=== PATIENT | female | born 1970 | race Hispanic/Latino ===

== ENCOUNTER 2018-10-23 05:26 | Inpatient (IN) | payer MEDICAID ==
[2018-10-23 05:32] VITALS: O2SAT 99
--- NOTE | 2018-10-23 05:50 | ED PDOC ---
Psych Transfer Clearance - Clearance Statement Clearance Statement: Reviewed vital signs, lab results and transfer papers. Patient clinically stable for psychiatric admission.
[2018-10-23] MEDS ORDERED: Magnesium Hydroxide Susp 30 ml UD PO PRN (06:02)
[2018-10-23] MEDS ORDERED: DiphenhydrAMINE 50 mg/ml Inj IM PRN (06:02)
[2018-10-23] MEDS ORDERED: Alum-Mag Hydrox-Simethicone Susp (30 mL) PO PRN (06:02)
--- NOTE | 2018-10-23 06:20 | PCM.BM ---
Treatment Plan Problems - Problems identified on initial assessmt Suicidal Ideation Date Initiated: 10/23/18 Time Initiated: 06:17 Assessment reference: NA Status: Active Hopelessness/Helplessness Date Initiated: 10/23/18 Time Initiated: 06:18 Assessment reference: NA Status: Active Altered Sleep Patterns Date Initiated: 10/23/18 Time Initiated: 06:21 Assessment reference: NA Treatment assets and liabiliti Patient Assests: cooperative, ADL independent, negotiates basic needs, good past tx response, cognitively intact Patient Liabilities: substance abuse, medical problems - Milieu Protocol Maintain good personal hygiene: daily Encourage regular showers, other Remind patient to perform daily oral care (prn), other Assist patient to perform ADL's (prn) Conduct patient checks and document Observation sheet: Q15 minutes Maintain personal safety: every shift Educate patient to report safety concerns to staff, every shift Monitor environment for contraband/sharps Medication safety: Monitor for expected outcome, potential side effects: every shift, Assess barriers to learning: every shift, Assess readiness for medication education: every shift
--- NOTE | 2018-10-23 08:30 | CARD ---
APPROVED REPORT Date of service: 10/23/2018 EKG Measurement Heart [id number] <Conclusion> Normal sinus rhythm Normal ECG
[2018-10-23 09:39] VITALS: BP 112/79; PULSE 93; RESP 18; TEMP 97.7
--- NOTE | 2018-10-23 14:45 | CP.PCM.CON ---
History of Present Illness - History of Present Illness History of Present Illness: 48 yo female with history of alcoholism admitted to psyche unit because of depression. Review of Systems - Review of Systems All systems: reviewed and no additional remarkable complaints except (aside from those mentioned above, 12 point system review were negative by me) Past Patient History - Tetanus Immunizations Tetanus Immunization: Unknown - Past Medical History & Family History Past Medical History?: No - CARDIAC Hx Cardiac Disorders: No - PULMONARY Hx Respiratory Disorders: No - NEUROLOGICAL Hx Neurological Disorder: No - HEENT Hx HEENT Problems: No - RENAL Hx Chronic Kidney Disease: No - HEMATOLOGICAL/ONCOLOGICAL Hx Blood Disorders: No - INTEGUMENTARY Hx Dermatological Problems: No - MUSCULOSKELETAL/RHEUMATOLOGICAL Hx Musculoskeletal Disorders: No - GASTROINTESTINAL Hx Gastrointestinal Disorders: No - GENITOURINARY/GYNECOLOGICAL Hx Genitourinary Disorders: No - PSYCHIATRIC Hx Substance Use: No - SURGICAL HISTORY Hx Surgeries: Yes Hx Cholecystectomy: Yes (2002) Hx Gastric Bypass Surgery: Yes (2001) Hx Hysterectomy: Yes (2001) Hx Thyroidectomy: Yes (2015) Other/Comment: left knee surgery, 1993 - ANESTHESIA Hx Anesthesia: Yes Hx Anesthesia Reactions: No Meds Allergies/Adverse Reactions: Allergies Allergy/AdvReac Type Severity Reaction Status Date / Time No Known Allergies Allergy Verified 10/23/18 05:32 - Medications Medications: Current Medications Acetaminophen (Tylenol 325mg Tab) 650 mg PO Q4 PRN PRN Reason: pain 4-7 Last Admin: 10/23/18 12:47 Dose: 650 mg Al Hydrox/Mg Hydrox/Simethicone (Maalox Plus 30 Ml) 30 ml PO Q4 PRN PRN Reason: Dyspepsia Diphenhydramine HCl (Benadryl) 50 mg IM Q6 PRN PRN Reason: Extrapyramidal S/S Unable PO Diphenhydramine HCl (Benadryl) 50 mg PO Q6 PRN PRN Reason: Extrapyramidal Symptoms Diphenhydramine HCl (Benadryl) 50 mg PO HS PRN PRN Reason: Sleep Haloperidol (Haldol) 5 mg PO Q4 PRN PRN Reason: Agitation Haloperidol Lactate (Haldol) 5 mg IM Q4 PRN PRN Reason: Agitation, Unable to Take PO Lorazepam (Ativan) 2 mg IM Q6 PRN PRN Reason: Anxiety/Agitation,Unable PO Lorazepam (Ativan) 1 mg PO Q8 PRN PRN Reason: Anxiety/Agitation Magnesium Hydroxide (Milk Of Magnesia) 30 ml PO HS PRN PRN Reason: Constipation Physical Exam - Constitutional Appears: No Acute Distress - Head Exam Head Exam: ATRAUMATIC - Eye Exam Eye Exam: absent: Scleral icterus - ENT Exam ENT Exam: Mucous Membranes Moist - Neck Exam Neck exam: Negative for: Meningismus - Respiratory Exam Respiratory Exam: absent: Rales, Rhonchi, Wheezes, Respiratory Distress - Cardiovascular Exam Cardiovascular Exam: REGULAR RHYTHM, +S1, +S2 - GI/Abdominal Exam GI & Abdominal Exam: Soft. absent: Tenderness - Rectal Exam Rectal Exam: Deferred - Back Exam Back exam: NORMAL INSPECTION - Neurological Exam Neurological exam: Alert, Oriented x3 - Psychiatric Exam Psychiatric exam: Normal Affect - Skin Skin Exam: Dry, Intact Results - Vital Signs Recent Vital Signs: Last Vital Signs Temp 97.7 F 10/23/18 09:00 Pulse 93 H 10/23/18 09:00 Resp 18 10/23/18 11:58 BP 112/79 10/23/18 09:00 Pulse Ox 99 10/23/18 05:30 Assessment & Plan (1) Depression Status: Acute Comment: psyche is managing
--- NOTE | 2018-10-23 15:37 | PCM.PSYCH ---
Initial Psychiatric Evaluation - Initial Psychiatric Evaluation Type of Admission: Voluntary Legal Status: Capacity Chief Complaint (in patient's own words): I am in severe pain which makes me depressed History of Present Illness and Precipitating Events: pt is 48ys old female with previous diagnosis of bipolar disorder, alcohol dependence and opiate dependence in early remission, recently discharged from [facility], after 21 days in rehab unit , pt was unable to get her medications and was also expeiencing severe joint pain, became increasingly depressed and presented to ER with passive suicidal ideation stating this is not a way to live pt on evaluation presented with depressed mood tearfull affect, low energy and poor motivation, denied perceptual disturbances denied recent substance use Current Medications: Active Medications Generic Name Dose Route Start Last Admin Trade Name Freq PRN Reason Stop Dose Admin Acetaminophen 650 mg 10/23/18 06:02 10/23/18 12:47 Tylenol 325mg Tab PO 650 mg Q4 PRN Administration pain 4-7 Al Hydrox/Mg Hydrox/Simethicone 30 ml 10/23/18 06:02 Maalox Plus 30 Ml PO Q4 PRN Dyspepsia Diphenhydramine HCl 50 mg 10/23/18 06:02 Benadryl IM Q6 PRN Extrapyramidal S/S Unable PO Diphenhydramine HCl 50 mg 10/23/18 06:02 Benadryl PO Q6 PRN Extrapyramidal Symptoms Diphenhydramine HCl 50 mg 10/23/18 06:02 Benadryl PO HS PRN Sleep Haloperidol 5 mg 10/23/18 06:02 Haldol PO Q4 PRN Agitation Haloperidol Lactate 5 mg 10/23/18 06:02 Haldol IM Q4 PRN Agitation, Unable to Take PO Lorazepam 2 mg 10/23/18 06:02 Ativan IM Q6 PRN Anxiety/Agitation,Unable PO Lorazepam 1 mg 10/23/18 06:02 Ativan PO Q8 PRN Anxiety/Agitation Magnesium Hydroxide 30 ml 10/23/18 06:02 Milk Of Magnesia PO HS PRN Constipation Past Psychiatric History - Past Psychiatric History Explanation of prior treatment: multiple inpatient rehab History of ETOH/Drug Use: hx of alcohol and opiate abuse in early full remission Pertinent Medical Hx (Current Medical&Sleep Prob, Allergies): Allergies Allergy/AdvReac Type Severity Reaction Status Date / Time No Known Allergies Allergy Verified 10/23/18 05:32 Acetaminophen [Tylenol 325mg tab] 650 mg PO Q4 PRN tab 10/23/18 Mental Status Examination - Personal Presentation Personal Presentation: Looks older than stated age - Affect Affect: Depressed - Motor Activity Motor Activity: Calm - Reliability in Providing Information Reliability in Providing Information: Fair - Speech Speech: Relevant - Mood Mood: Depressed - Formal Thought Process Formal Thought Process: No Impairment - Obsessions/Compulsions Obsessions: No Compulsions: No - Cognitive Functions Orientation: Person, Place, Situation Sensorium: Alert Attention/Concentration: Attentive Estimate of Intelligence: Average - Risk Risk: Diminished functioning - Strength & Assets Inventory Strength & Assets Inventory: Life experience - Limitations Additional comments: partial compliance DSM 5 DX - DSM 5 DSM 5 Diagnosis: bipolar I disorder alcohol use in early full remission opiate use in early full remission - Recommended/Plan of Treatment Treatment Recommendations and Plan of Treatment: re start wellbutrin re start seroquel restart neurontin medical consult
--- NOTE | 2018-10-23 15:43 | PCM.PYCHDC ---
Mental Status Examination - Mental Status Examination Orientation: Person, Place, Situation Memory: Intact Mood: Neutral Affect: Constricted Speech: Appropriate Attention: WNL Concentration: WNL Association: WNL Fund of Knowledge: WNL Formal Thought Process: No Impairment Description of patient's judgement and insight: partial insight fair judgment Psychotic Thoughts and Behaviors: pt denied perceptual disturbances, non elicited Suicidal Ideation: No Current Homicidal Ideation?: No Discharge Summary - Discharge Note Reason for Hospitalization: pt is 48ys old female with previous diagnosis of bipolar disorder, alcohol dependence and opiate dependence in early remission, recently discharged from [facility], after 21 days in rehab unit , pt was unable to get her medications and was also expeiencing severe joint pain, became increasingly depressed and presented to ER with passive suicidal ideation stating this is not a way to live pt on evaluation presented with depressed mood tearfull affect, low energy and poor motivation, denied perceptual disturbances denied recent substance use Consultations:: List each consultation separately and include: 1. Reason for request. 2. Findings. 3. Follow-up Summary of Hospital Course include:: 1. Description of specific treatment plan utilized for patients during their course of treatmen. 2. Summarize the time- course for resolution of acute symptoms and/or regressed behaviors. 3. Describe issues identified and worked on during hospitalization. 4. Describe medication utilized. 5. Describe medical problems identified and treated. 6. Reassessment of suicide risk Summary of Hospital Course: pt on admission was restarted on her medications pt requeseted opiate medications for her pain, patient was educated about their addictive nature and possibility of relapse pt requested to be discharged against medical advise she did not meet criteria for involuntary admission on discharge mental status was stable she denied any current suicidal or homicidal ideation denied perceptual disturbances pt was discharged against medical advise - Final Diagnosis (DSM 5) Condition upon Discharge: GOOD DSM 5: bipolar I disorder alcohol abuse in early full remission opiate abuse in early full remission Disposition: AGAINST MEDICAL ADVICE Follow-up Treatment Plan: re start wellbutrin re start seroquel restart neurontin medical consult - Antipsychotic Medications Pt discharged on 2 or more routine antipsychotic medications: No
== END 2018-10-23 15:30 | disposition left against medical advice (07) | DRG 430 ==
LOC: H.ER 05:26 → H.PSYCH 05:48
PROVIDERS: ADMIT Psychiatry & Neurology Psychiatry; ATTEND Psychiatry & Neurology Psychiatry
PROC: GZHZZZZ Group Psychotherapy (ICD-10-PCS; principal; 2018-10-23)
PROC: GZ58ZZZ Individual Psychotherapy, Cognitive-Behavioral (ICD-10-PCS; 2018-10-23)
PROC: HZ52ZZZ Individual Psychotherapy for Substance Abuse Treatment, Cognitive-Behavioral (ICD-10-PCS; 2018-10-23)
DX: F31.9 Bipolar disorder, unspecified (principal); R45.851 Suicidal ideations; F10.21 Alcohol dependence, in remission; F11.21 Opioid dependence, in remission